=== PATIENT | female | born 1945 | race Caucasian/White ===

== ENCOUNTER 2019-10-16 09:30 | Outpatient (CLI) | payer MEDICARE, OTHER, SELFPAY | END 2019-10-16 11:00 | disposition home or self-care (01) | LOC: NSACUTE 02-13 13:08 | PROVIDERS: Family Provider Family Medicine; PCP Family Medicine; Visit Provider Specialist | DX: G43.909 Migraine, unspecified, not intractable, without status migrainosus (principal); G40.209 Localization-related (focal) (partial) symptomatic epilepsy and epileptic syndromes with complex partial seizures, not intractable, without status epilepticus | CPT/HCPCS: 99213 ==

== ENCOUNTER → 2020-08-13 11:13 | Outpatient (BNVA) | payer MEDICARE, OTHER, SELFPAY | PROVIDERS: Family Provider Family Medicine; PCP Family Medicine; Visit Provider Specialist | DX: G40.209 Localization-related (focal) (partial) symptomatic epilepsy and epileptic syndromes with complex partial seizures, not intractable, without status epilepticus (principal); G43.711 Chronic migraine without aura, intractable, with status migrainosus | CPT/HCPCS: 99213 ==

== ENCOUNTER 2020-12-18 10:59 | Outpatient (CLI) | payer MEDICARE, OTHER, SELFPAY ==
--- NOTE | 2020-12-18 11:08 | MM_ITS ---
WS: [id number] BILATERAL DIGITAL SCREENING MAMMOGRAPHY WITH CAD CLINICAL INFORMATION: SCREENING HISTORY: Screening mammogram. No current complaints. COMPARISON: TECHNIQUE: Bilateral CC and MLO views. FINDINGS: Scattered fibroglandular densities bilaterally. Vascular calcification. A few punctate calcifications . No suspicious focal mass, asymmetry, calcifications, or architectural distortion. No evidence of ma lignancy. MM/[place] [id number] IMPRESSION: BI-RADS: 2-Benign FOLLOW UP: 1 Year Follow-up Recommend return to annual screening mammography.
== END 2020-12-18 11:00 | disposition home or self-care (01) ==
LOC: RADSHAW 11:04
PROVIDERS: Family Provider Family Medicine; PCP Family Medicine; Visit Provider Family Medicine
DX: Z12.31 Encounter for screening mammogram for malignant neoplasm of breast (principal)
CPT/HCPCS: 77067

== ENCOUNTER 2021-01-20 13:40 | Outpatient (CLI) | payer MEDICARE, OTHER, SELFPAY ==
--- NOTE | 2021-01-20 14:37 | XRR_ITS ---
PROCEDURE INFORMATION: Exam: XR Left Hip Exam date and time: 01/20/2021 2:37 PM Age: 75 years old Clinical indication: Hip pain; Left hip; Additional info: Left hip pain TECHNIQUE: Imaging protocol: XR Left hip. Views: 2 or 3 views hip with pelvis when performed. COMPARISON: CR Lumbar Spine 2-3 views* [id number] 10/21/2016 1:21 PM FINDINGS: Bones/joints: Unremarkable. No acute fracture. Soft tissues: Unremarkable. XR/XR hip LT 2-3V wo/w pel* [id number] IMPRESSION: No acute findings.
--- NOTE | 2021-01-20 14:37 | XRR_ITS ---
PROCEDURE INFORMATION: Exam: XR Bilateral Sacroiliac Joints Exam date and time: 01/20/2021 2:37 PM Age: 75 years old Clinical indication: Other: Left hip pain TECHNIQUE: Imaging protocol: XR Bilateral XR of the sacroiliac joints. Views: 3 or more views. COMPARISON: CR Lumbar Spine 2-3 views* [id number] 10/21/2016 1:21 PM FINDINGS: Bones/joints: Normal. No acute fracture. Soft tissues: Normal. XR/XR sacroiliac jts m 3V [id number] IMPRESSION: No acute findings.
== END 2021-01-20 13:41 | disposition home or self-care (01) ==
PROVIDERS: PCP Family Medicine; Visit Provider Family Medicine
DX: M25.552 Pain in left hip (principal)
CPT/HCPCS: 72202; 73502

== ENCOUNTER 2021-04-15 09:01 | Outpatient (CLI) | payer MEDICARE, OTHER, SELFPAY ==
--- NOTE | 2021-04-15 09:08 | FL_ITS ---
WS: [id number] ESOPHAGRAM TECHNIQUE: Double contrast examination was performed with thin and thick barium. Upright and MONTALVO imag es were obtained. CLINICAL INFORMATION: OTHER CHEST PAIN, GASTRO-ESOPHAGEAL REFLUX DISEASE WITHOUT E COMPARISON: None. FINDINGS: Swallowing: No evidence of aspiration or penetration. Esophagus: Moderate esophageal dysmotility with delayed emptying on the upright and supine views. Ter tiary contractions in the distal esophagus. No difficulties with the barium tablet. Overall somewhat small caliber esophagus although no evidence of high-grade focal stricture Gastroesophageal reflux: Moderate reflux in the upright and supine views to the upper thoracic esopha tisha. Small esophageal hiatal hernia. Fluoroscopy time: 3.7 minutes. FL/FL barium swallow [id number] IMPRESSION: 1. No evidence of aspiration or penetration. 2. Moderate esophageal dysmotility with delayed emptying on the upright and grant pine views. Tertiary contractions visualized in the distal esophagus. 3. No evidence of high-grade obstructing stricture. No difficulties with bariu m tablet. 4. Moderate reflux to the upper thoracic esophagus with evidence of reflux eso phagitis.
== END 2021-04-15 09:02 | disposition home or self-care (01) ==
PROVIDERS: PCP Family Medicine; Visit Provider Nurse Practitioner
DX: R07.89 Other chest pain (principal); K21.00 Gastro-esophageal reflux disease with esophagitis, without bleeding
CPT/HCPCS: 74220

== ENCOUNTER → 2021-08-12 09:48 | Outpatient (BNVA) | payer MEDICARE, OTHER, SELFPAY | PROVIDERS: PCP Family Medicine; Visit Provider Specialist | DX: G40.209 Localization-related (focal) (partial) symptomatic epilepsy and epileptic syndromes with complex partial seizures, not intractable, without status epilepticus (principal) | CPT/HCPCS: 99213 ==

== ENCOUNTER 2022-03-23 09:36 | Outpatient (CLI) | payer MEDICARE, OTHER, SELFPAY ==
--- NOTE | 2022-03-23 09:53 | MM_ITS ---
WS: [id number] BILATERAL SCREENING DIGITAL TOMOSYNTHESIS MAMMOGRAM WITH CAD HISTORY: SCREENING COMPARISON: 12/18/2020 and 09/14/2018 Bilateral CC and MLO views with tomosynthesis and synthetic mammography submitted. Computer aided det ection analyzed. Breast composition: There are scattered areas of fibroglandular density. No suspicious masses, microc alcifications or architectural distortion. MM/[place] [id number] IMPRESSION: BI-RADS: 1-Negative FOLLOW UP: 1 Year Follow-up
== END 2022-03-23 09:37 | disposition home or self-care (01) ==
PROVIDERS: PCP Family Medicine; Visit Provider Family Medicine
DX: Z12.31 Encounter for screening mammogram for malignant neoplasm of breast (principal)
CPT/HCPCS: 77063; 77067

== ENCOUNTER 2022-06-15 13:35 | Outpatient (CLI) | payer MEDICARE, OTHER, SELFPAY ==
--- NOTE | 2022-06-15 14:00 | CT_ITS ---
WS: [id number] CT CHEST TECHNIQUE: Contrast enhanced CT of the chest with coronal and sagittal reformatted images. CLINICAL INFORMATION: nodule COMPARISON: None. DLP: 507.[address] scans at [facility] use at least one of these dose optimization techniques: automated e xposure control; mA and/or kV adjustment per patient size (includes targeted exams where dose is matc hed to clinical indication); or iterative reconstruction. FINDINGS: Lungs are well aerated. No acute pulmonary infiltrates. No focal pneumonia or pleural fluid. Slight b ibasilar atelectasis. 3.3 mm noncalcified nodule RIGHT lower lobe. Interstitial thickening in the makayla g bases. A few calcified granulomas. Mild aortic calcification. No mediastinal or hilar lymphadenopathy.Prior cholecystectomy. Adrenal gla nds are normal. No axillary lymphadenopathy. CT/CT chest w con* [id number] IMPRESSION: 1. Lungs are well aerated. No acute pulmonary infiltrates. No focal pneumonia or pleural fluid. 2. 3.3 mm noncalcified nodule RIGHT lower lobe. 3. No mediastinal or hilar lymphadenopathy. 4. No other remarkable findings.
[2022-06-15 14:25] LABS: Blood Urea Nitrogen 17 mg/dL (8-23)
[2022-06-15] MEDS: iohexol 350 mg/mL 100 mL Btl IV (14:31)
== END 2022-06-15 13:36 | disposition home or self-care (01) ==
LOC: RAD 13:35
PROVIDERS: PCP Family Medicine; Visit Provider Family Medicine
DX: R91.1 Solitary pulmonary nodule (principal)
CPT/HCPCS: 71260; 82565; 84520; Q9967

== ENCOUNTER → 2022-08-27 09:05 | Outpatient (BNVA) | payer MEDICARE, OTHER, SELFPAY | PROVIDERS: PCP Family Medicine; Visit Provider Specialist | DX: G43.109 Migraine with aura, not intractable, without status migrainosus (principal); G40.209 Localization-related (focal) (partial) symptomatic epilepsy and epileptic syndromes with complex partial seizures, not intractable, without status epilepticus; R26.89 Other abnormalities of gait and mobility; R05.9 Cough, unspecified | CPT/HCPCS: 99213 ==

== ENCOUNTER 2023-07-26 09:39 | Outpatient (CLI) | payer MEDICARE, OTHER, SELFPAY ==
--- NOTE | 2023-07-26 09:44 | MM_ITS ---
WS: [id number] BILATERAL SCREENING DIGITAL TOMOSYNTHESIS MAMMOGRAM WITH CAD HISTORY: SCREENING COMPARISON: 03/23/2022 and 12/18/2020 Bilateral CC and MLO views with tomosynthesis and synthetic mammography submitted. Computer aided det ection analyzed. Breast composition: There are scattered areas of fibroglandular density. No suspicious masses, microc alcifications or architectural distortion. Benign bilateral breast arterial calcifications. IMPRESSION: MM/[place] [id number] BI-RADS: 2-Benign FOLLOW UP: 1 Year Follow-up
== END 2023-07-26 09:40 | disposition home or self-care (01) ==
LOC: RAD 09:39
PROVIDERS: PCP Family Medicine; Visit Provider Family Medicine
DX: Z12.31 Encounter for screening mammogram for malignant neoplasm of breast (principal)
CPT/HCPCS: 77063; 77067

== ENCOUNTER 2023-08-31 09:50 | Outpatient (CLI) | payer MEDICARE, OTHER, SELFPAY ==
--- NOTE | 2023-08-31 10:30 | CT_ITS ---
WS: [id number] CT chest w con* [id number] HISTORY: follow up pulmonary nodule TECHNIQUE: Axial imaging performed through the thorax. Coronal and sagittal reformats are submitted. All CT scans at [facility] use at least one of these dose optimization techniques: automated exposure control; mA and/or kV adjustment per patient size (includes targeted exams where dose is mat ched to clinical indication); or iterative reconstruction. CONTRAST: Omnipaque 350; 100 mL IV. DLP: 221.90 mGy.cm COMPARISON: 06/15/2022 Lungs and central airway: Lungs are mildly hyperinflated. Previously described 3 mm nod[address] the [facility] lung base is reidentified with no increase in size since 06/15/2022. Benign granuloma superior seg ment RIGHT lower lobe. No new mass or enlarging nodules. No pneumonia. There are few scattered granul omata which are benign. Pleura: Normal. No pleural effusion. Heart and pericardium: Normal size heart with no pericardial effusion. Mediastinum and fer: No mediastinum or hilar adenopathy. Vessels: Moderate atherosclerosis of the aorta. Normal pulmonary artery. Chest wall and lower neck: No soft tissue masses. Upper abdomen: Prior cholecystectomy. No bile duct dilatation. No adrenal mass. Osseous structures: Scoliosis and curvature of thoracolumbar spine. IMPRESSION: 1. Previously described 3 mm nodule in the RIGHT lower lobe is unchanged since 06/15/2022. 2. No new mass or enlarging mass or nodule. No pneumonia. 3. No mediastinal or hilar adenopathy. 4. Moderate atherosclerosis aorta. 5. Prior cholecystectomy.
[2023-08-31 10:31] LABS: Blood Urea Nitrogen 13 mg/dL (8-23)
[2023-08-31] MEDS: iohexol 350 mg/mL 500 mL Btl (per mL) IV (10:40)
== END 2023-08-31 09:51 | disposition home or self-care (01) ==
LOC: RAD 09:50
PROVIDERS: PCP Family Medicine; Visit Provider Family Medicine
DX: R91.1 Solitary pulmonary nodule (principal); J44.9 Chronic obstructive pulmonary disease, unspecified; I70.0 Atherosclerosis of aorta; Z90.49 Acquired absence of other specified parts of digestive tract
CPT/HCPCS: 71260; 82565; 84520; Q9967

== ENCOUNTER → 2023-09-06 07:47 | Outpatient (BNVA) | payer MEDICARE, OTHER, SELFPAY | PROVIDERS: PCP Family Medicine; Visit Provider Specialist | DX: G40.209 Localization-related (focal) (partial) symptomatic epilepsy and epileptic syndromes with complex partial seizures, not intractable, without status epilepticus (principal); R29.90 Unspecified symptoms and signs involving the nervous system; G43.109 Migraine with aura, not intractable, without status migrainosus; G43.711 Chronic migraine without aura, intractable, with status migrainosus; R25.1 Tremor, unspecified | CPT/HCPCS: 99214 ==

== ENCOUNTER → 2023-10-04 07:22 | Outpatient (BNVA) | payer MEDICARE, OTHER, SELFPAY | PROVIDERS: PCP Family Medicine; Visit Provider Family Medicine | DX: Z00.00 Encounter for general adult medical examination without abnormal findings (principal); J44.9 Chronic obstructive pulmonary disease, unspecified; R25.1 Tremor, unspecified; E55.9 Vitamin D deficiency, unspecified; Z13.6 Encounter for screening for cardiovascular disorders; G40.209 Localization-related (focal) (partial) symptomatic epilepsy and epileptic syndromes with complex partial seizures, not intractable, without status epilepticus; G43.711 Chronic migraine without aura, intractable, with status migrainosus | CPT/HCPCS: 80053; 80061; 80164; 82607; 82652; 83516; 85025 ==

== ENCOUNTER → 2024-06-06 13:21 | Outpatient (BNVA) | payer MEDICARE, OTHER, SELFPAY | PROVIDERS: PCP Family Medicine; Visit Provider Family Medicine | DX: N39.0 Urinary tract infection, site not specified (principal) | CPT/HCPCS: 81000; 87077; 87086; 87184 ==

== ENCOUNTER → 2024-06-18 12:34 | Outpatient (BNVA) | payer MEDICARE, OTHER, SELFPAY | PROVIDERS: PCP Family Medicine; Visit Provider Family Medicine | DX: N39.0 Urinary tract infection, site not specified (principal) | CPT/HCPCS: 81000; 87086 ==

== ENCOUNTER → 2024-08-14 14:53 | Outpatient (BNVA) | payer MEDICARE, OTHER, SELFPAY | PROVIDERS: PCP Family Medicine; Visit Provider Family Medicine | DX: R30.0 Dysuria (principal) | CPT/HCPCS: 81000 ==

== ENCOUNTER → 2024-08-21 09:13 | Outpatient (BNVA) | payer MEDICARE, OTHER, SELFPAY | PROVIDERS: PCP Family Medicine; Visit Provider Specialist | DX: R25.1 Tremor, unspecified (principal); G40.209 Localization-related (focal) (partial) symptomatic epilepsy and epileptic syndromes with complex partial seizures, not intractable, without status epilepticus; G43.711 Chronic migraine without aura, intractable, with status migrainosus; R41.89 Other symptoms and signs involving cognitive functions and awareness | CPT/HCPCS: 96116; 99214 ==

== ENCOUNTER → 2024-10-01 10:25 | Outpatient (BNVA) | payer MEDICARE, OTHER, SELFPAY | PROVIDERS: PCP Family Medicine; Visit Provider Family Medicine | DX: G43.711 Chronic migraine without aura, intractable, with status migrainosus (principal); G40.209 Localization-related (focal) (partial) symptomatic epilepsy and epileptic syndromes with complex partial seizures, not intractable, without status epilepticus; R25.1 Tremor, unspecified; J44.9 Chronic obstructive pulmonary disease, unspecified; E03.9 Hypothyroidism, unspecified | CPT/HCPCS: 80053; 80061; 82306; 82607; 84443; 85025 ==

== ENCOUNTER 2024-10-16 08:34 | Outpatient (CLI) | payer MEDICARE, OTHER, SELFPAY ==
--- NOTE | 2024-10-16 08:37 | MM_ITS ---
WS: [id number] BILATERAL 3D TOMOSYNTHESIS DIGITAL SCREENING MAMMOGRAPHY WITH CAD CLINICAL INFORMATION: SCREENING HISTORY: Screening mammogram. No current complaints. COMPARISON: 07/26/2023 TECHNIQUE: Bilateral CC and MLO views. FINDINGS: Scattered fibroglandular densities bilaterally. No suspicious focal mass, asymmetry, calcifications, or architectural distortion. No evidence of malignancy. Vascular calcifications. MM/MM scr BI tomosynthesis [id number] IMPRESSION: DENSITY: There are scattered areas of fibroglandular density. BI-RADS: 2 - Benign. FOLLOW UP: 1 Year Follow-up Recommend return to annual screening mammography.
== END 2024-10-16 08:35 | disposition home or self-care (01) ==
LOC: RAD 08:36
PROVIDERS: PCP Family Medicine; Visit Provider Family Medicine
DX: Z12.31 Encounter for screening mammogram for malignant neoplasm of breast (principal); R92.323 Mammographic fibroglandular density, bilateral breasts; I70.90 Unspecified atherosclerosis
CPT/HCPCS: 77063; 77067

== ENCOUNTER 2024-10-26 07:55 | Outpatient (CLI) | payer MEDICARE, OTHER, SELFPAY ==
--- NOTE | 2024-10-26 07:59 | FL_ITS ---
WS: [id number] Exam: FL barium swallow 2cont [id number] Date/Time of Exam: 10/26/2024 8:31 AM Reason For Exam: DYSPHAGIA/ERUCTATION/GERD W/O ESOPHAGITIS Fluoroscopy time: minutes # of spot films: 8 Oropharyngeal phase of swallowing was normal. There is no indication of esophageal stricture or mass. Normal esophageal motility. No hiatal hernia or gastroesophageal reflux was observed. The esophagus is not displaced. FL/FL barium swallow 2cont [id number] IMPRESSION: 1. Unremarkable double contrast esophagram.
== END 2024-10-26 07:56 | disposition home or self-care (01) ==
PROVIDERS: PCP Family Medicine; Visit Provider Nurse Practitioner
DX: R13.10 Dysphagia, unspecified (principal); R14.2 Eructation; K21.9 Gastro-esophageal reflux disease without esophagitis; E87.1 Hypo-osmolality and hyponatremia
CPT/HCPCS: 74221; 80053

== ENCOUNTER → 2024-12-04 11:42 | Outpatient (BNVA) | payer MEDICARE, OTHER, SELFPAY | PROVIDERS: PCP Family Medicine; Referring Provider Family Medicine; Visit Provider Specialist | DX: G43.119 Migraine with aura, intractable, without status migrainosus (principal) | CPT/HCPCS: 99214 ==

== ENCOUNTER → 2025-03-11 12:24 | Outpatient (BNVA) | payer MEDICARE, OTHER, SELFPAY | PROVIDERS: PCP Family Medicine; Referring Provider Family Medicine; Visit Provider Specialist | DX: G43.119 Migraine with aura, intractable, without status migrainosus (principal) | CPT/HCPCS: 99214 ==

== ENCOUNTER 2025-05-14 08:17 | Outpatient (CLI) | payer MEDICARE, OTHER, SELFPAY ==
[2025-05-14 08:47] LABS: Blood Urea Nitrogen 14 mg/dL (8-23)
--- NOTE | 2025-05-14 09:00 | CT_ITS ---
WS: [id number] CT ANGIOGRAM CAROTID ARTERIES HISTORY: G45.3 - Amaurosis fugax TECHNIQUE: CT angiogram is performed of the carotid arteries. During arterial injection imaging is obtained from the skull base to the aortic arch in 1.25 mm imaging. Coronal and sagittal reformats are submitted, MIP imaging also reviewed. Additional multiplanar reformats of the carotid arteries are grant bmitted. NASCET criteria utilized. All CT scans at [facility] use at least one of these dose optimization techniques: automated exposure control; mA and/or kV adjustment per patient size (includes targeted exams where dose is matched to clinical indication); or iterative reconstruction. CONTRAST: Omnipaque 350; 100 mL IV. DLP: 190.41 mGy.cm COMPARISON: 08/17/2018 Right carotid: Common carotid artery: Arises normally from the innominate artery. No significant plaque or stenosis. Internal carotid artery: Small amount of calcified plaque and intimal thickening at the bifurcations. No significant stenosis. External carotid artery: Patent. Left carotid: Common carotid artery: Arises normally from the aortic arch. No significant stenosis. Internal carotid artery: No plaque or stenosis. External carotid artery: Patent. Right vertebral artery: Unremarkable. Left vertebral artery: Slightly dominant. No occlusion. Subclavian arteries: No stenosis or abnormality identified. Upper thorax: Normal. Thyroid gland: Normal. Osseous structures: C3 anterolisthesis by 5 mm. Advanced degenerative disc disease at C4-5, C5-6 and C6-7. No change. Skull base: Artifact from patient's dental amalgam limiting detail through the facial bone structures. CT/CT angio neck [id number] IMPRESSION: 1. Small amount of plaque in the RIGHT cervical carotid bifurcation. No signif icant stenosis. 2. Normal LEFT cervical carotid artery. No stenosis. 3. Mildly dominant LEFT vertebral artery. Both vertebral arteries are patent. 4. Stable C3 anterolisthesis by 5 mm.
[2025-05-14] MEDS: iohexol 350 mg/mL 500 mL Btl (per mL) IV (09:04)
== END 2025-05-14 08:18 | disposition home or self-care (01) ==
PROVIDERS: PCP Family Medicine; Visit Provider Specialist
DX: I65.21 Occlusion and stenosis of right carotid artery (principal); M43.12 Spondylolisthesis, cervical region; M50.321 Other cervical disc degeneration at C4-C5 level; M50.322 Other cervical disc degeneration at C5-C6 level; M50.323 Other cervical disc degeneration at C6-C7 level
CPT/HCPCS: 70498; 82565; 84520

== ENCOUNTER → 2025-05-31 13:00 | Outpatient (BNVA) | payer MEDICARE, OTHER, SELFPAY | PROVIDERS: PCP Family Medicine; Visit Provider Family Medicine | DX: F41.9 Anxiety disorder, unspecified (principal); N39.0 Urinary tract infection, site not specified | CPT/HCPCS: 81000; 87077; 87086; 87184 ==

== ENCOUNTER → 2025-06-25 13:15 | Outpatient (BNVA) | payer MEDICARE, OTHER, SELFPAY | PROVIDERS: PCP Family Medicine; Referring Provider Family Medicine; Visit Provider Specialist | DX: G45.3 Amaurosis fugax (principal); G43.119 Migraine with aura, intractable, without status migrainosus | CPT/HCPCS: 99214 ==

== ENCOUNTER → 2025-07-01 08:26 | Outpatient (BNVA) | payer MEDICARE, OTHER, SELFPAY | PROVIDERS: PCP Family Medicine; Visit Provider Dermatology | DX: B02.9 Zoster without complications (principal); R20.2 Paresthesia of skin; L98.8 Other specified disorders of the skin and subcutaneous tissue; L82.1 Other seborrheic keratosis; D18.01 Hemangioma of skin and subcutaneous tissue; Z08 Encounter for follow-up examination after completed treatment for malignant neoplasm; Z85.828 Personal history of other malignant neoplasm of skin; L57.0 Actinic keratosis | CPT/HCPCS: 17000; 99203 ==